=== PATIENT | female | born 1950 | race Two or more races ===

== ENCOUNTER 2019-12-25 15:58 | Inpatient (IN) | payer OTHER, MEDICARE, MEDICAID ==
[~2019-12-25] VITALS: Ht 152.4 cm; Wt 40.4 kg
--- NOTE | 2019-12-25 16:24 | NUR ---
BIB ra c/o altered from home, BS 86 in field. PT AWAKE EYES OPEN, NON VERBAL. RR EVEN & UNLABORED. NO ACUTE DISTRESS NOTED. PT SEEN & EVAL'D BY DR. LITTLE. PLACED ON CENTERLESS GRINDING MACHINE ADJUSTER, ST. WILL CONT TO MONITOR. PT TO CT VIA KATY.
[2019-12-25 16:26] LABS: BASOPHILS # (AUTO) 0.1 /CMM (0.0-0.2); BASOPHILS % (AUTO) 0.6 % (0.0-2.0); EOSINOPHILS % (AUTO) 0.3 % (0.0-6.0); HEMATOCRIT 48 % (33-45); HEMOGLOBIN 16.1 g/dL (11.5-14.8); LYMPHOCYTES # (AUTO) 1.8 /CMM (0.8-4.8); MEAN CORPUSCULAR HGB CONC 33 g/dl (31.0-36.0); MEAN CORPUSCULAR VOLUME 95 fL (82-100); MONOCYTES # (AUTO) 0.7 /CMM (0.1-1.30); MONOCYTES % (AUTO) 7.4 % (2.0-12.0); NEUTROPHILS # (AUTO) 6.6 /CMM (1.8-8.9); NEUTROPHILS % (AUTO) 71.7 % (43.0-81.0); PLATELET COUNT (AUTO) 260 /CMM (150-450); RED BLOOD CELL COUNT(AUTO) 5.09 MIL/uL (4.0-5.2); WHITE BLOOD COUNT (AUTO) 9.2 K/uL (4.3-11.0)
[2019-12-25] MEDS ORDERED: IV NS 0.9% 1,000 ML IV ONE (16:30)
[2019-12-25 16:39] LABS: CALCIUM, SERUM 10.1 mg/dL (8.5-10.1); CARBON DIOXIDE 26 mmol/L (21-32); CHLORIDE 102 mmol/L (98-107); CREATININE 1.2 mg/dL (0.6-1.3); GLUCOSE 102 mg/dL (74-106); POTASSIUM 4.5 mmol/L (3.5-5.1); SODIUM SERUM 139 mmol/L (136-145); UREA NITROGEN, BLOOD 23 mg/dL (7-18)
[2019-12-25 16:45] LABS: ACETAMINOPHEN < 2 ug/ml (10-30); ALANINE AMINOTRANSFERASE 33 U/L (12-78); ALBUMIN 4.4 g/dL (3.4-5.0); ALCOHOL, BLOOD < 3 mg/dL (0-0); ALKALINE PHOSPHATASE 78 U/L (46-116); ASPARTATE AMINOTRANSFERASE 33 U/L (15-37); BILIRUBIN,DIRECT 0.1 mg/dL (0.0-0.2); BILIRUBIN,TOTAL 0.6 mg/dL (0.2-1.0); SALICYLATE 2.8 mg/dL (2.8-20.0); TOTAL PROTEIN, SERUM 7.9 g/dL (6.4-8.2)
[2019-12-25 17:36] LABS: APPEARANCE,URINE Clear (CLEAR); BILIRUBIN,URINE SMALL (NEGATIVE); BLOOD, URINE Small Ery/uL (NEGATIVE); COLOR,URINE Yellow (YELLOW); KETONES,URINE 15 (NEGATIVE); LEUKOCYTE ESTERASE ,URINE Negative (NEGATIVE); NITRITE, URINE Negative (NEGATIVE); PH,URINE 5.5 (5.0-8.0); PROTEIN,URINE Trace mg/dl (NEGATIVE); UGLUCOSE Negative (NEGATIVE); UROBILINOGEN,URINE 0.2 EU/dL (0.2)
[2019-12-25 17:44] LABS: BACTERIA,URINE Few /HPF (None Seen); SQUAMOUS EPITHELIAL CELL,UR Few /HPF (None Seen); WBC,URINE 0-2 /HPF (0-3)
--- NOTE | 2019-12-25 18:22 | NUR ---
Patient is resting comfortably in bed with eyes closed. Easily aroused. VSS
[2019-12-25] MEDS ORDERED: MAGNESIUM HYDROXIDE 30 ML UDC PO PRN (20:00)
[2019-12-25] MEDS ORDERED: ONDANSETRON HCL/PF 4 MG/2 ML VIAL IVP PRN (20:00)
[2019-12-25] MEDS ORDERED: MAG HYDROX/AL HYDROX/SIMETH 30 ML UDC PO PRN (20:00)
[2019-12-25] MEDS ORDERED: ACETAMINOPHEN 325 MG TABLET PO PRN (20:00)
[2019-12-25] MEDS ORDERED: Z GUARD REMEDY 2 OZ OINT TP PRN (20:00)
[2019-12-25] MEDS ORDERED: Thiamine 100 MG in IV D5W 50 ML IV SCH (21:00)
[2019-12-25 21:30] VITALS: BP 134/86
--- NOTE | 2019-12-25 21:43 | NUR ---
REPORT GIVEN TO CRISSY RAMIREZ FOR KETURAH
--- NOTE | 2019-12-25 21:50 | NUR ---
VENKAT ([facility]): [phone]
[2019-12-25] MEDS: LORAZEPAM INJ 2 MG/ML VIAL IV PRN (22:24)
[2019-12-25] MEDS: IV NS 0.9% 1,000 ML IV PRN (22:28)
--- NOTE | 2019-12-25 22:30 | NUR ---
MACHINE FUR CLEANER NOTES 2209 [facility] ER staff. Admitted to Tele due to delirium and dehydration under the service of MARK Schaefer. Transferred to bed comfortably. Pt noted getting off the bed, anxious, unable to calm down. Admission routine done. Pt non-verbal, very poor historian. Initial skin assessment done, no skin issues identified at this time. On tele monitor with NSR noted. Initiated soft wrist restraint as ordered for pt's safety. PRN Ativan given as ordered. Kept on bed clean, dry and comfortable. On fall and aspiration precautions. Will continue to monitor accordingly.
[2019-12-25] MEDS ORDERED: Thiamine 100 MG/ML VIAL ONE (23:25)
[2019-12-26] MEDS: LORAZEPAM INJ 2 MG/ML VIAL IV PRN (03:15)
--- NOTE | 2019-12-26 06:32 | NUR ---
RN CLOSING NOTES Pt asleep on bed, on RA, no SOB/respiratory distress noted. Kept on bed on fall and aspiration precautions. Medicated for agitation/anxiety, noted effective. All nursing needs attended. Endorsed.
[2019-12-26 06:35] LABS: BASOPHILS % (AUTO) 0.4 % (0.0-2.0); HEMATOCRIT 42 % (33-45); HEMOGLOBIN 13.7 g/dL (11.5-14.8); LYMPHOCYTES # (AUTO) 1.7 /CMM (0.8-4.8); LYMPHOCYTES % (AUTO) 22.5 % (20.0-44.0); MEAN CORPUSCULAR HGB CONC 33 g/dl (31.0-36.0); MEAN CORPUSCULAR VOLUME 96 fL (82-100); MONOCYTES # (AUTO) 0.8 /CMM (0.1-1.30); MONOCYTES % (AUTO) 10.3 % (2.0-12.0); NEUTROPHILS % (AUTO) 65.8 % (43.0-81.0); PLATELET COUNT (AUTO) 182 /CMM (150-450); RED BLOOD CELL COUNT(AUTO) 4.36 MIL/uL (4.0-5.2); WHITE BLOOD COUNT (AUTO) 7.6 K/uL (4.3-11.0)
[2019-12-26 07:00] LABS: CALCIUM, SERUM 8.7 mg/dL (8.5-10.1); CREATININE 0.8 mg/dL (0.6-1.3); MAGNESIUM 2.2 mg/dL (1.8-2.4); PHOSPHORUS 3.4 mg/dL (2.5-4.9); POTASSIUM 3.6 mmol/L (3.5-5.1)
--- NOTE | 2019-12-26 07:40 | NUR ---
MS RN NOTES PATIENT RECEIVED IN BED SLEEPING, EASILY AWAKEN BY TOUCH. PATIENT HAS PERIODS OF CONFUSIONS. ON ROOM AIR, WITH NO SIGNS OF RESPIRATORY DISTRESS AT THIS TIME WITH EVEN NON-LABORED BREATHING, AND NO SOB NOTED. SKIN DRY AND WARM TO TOUCH. SITTER AT BEDSIDE, BRITNEY. IV ACCESS INTACT AND PATENT. SAFETY PRECAUTIONS IMPLEMENTED WITH BED LOCKED, BED IN THE LOWEST POSITION, BED ALARM ON, BILATERAL SIDE RAILS UP, AND CALL LIGHT WITHIN EASY REACH OF PATIENT. WILL CONTINUE TO MONITOR PATIENT.
[2019-12-26 08:00] VITALS: BP 101/64
[2019-12-26] MEDS ORDERED: PANTOPRAZOLE 40 MG VIAL IV SCH (09:00)
[2019-12-26] MEDS: IV NS 0.9% 1,000 ML IV PRN (11:08)
--- NOTE | 2019-12-26 13:55 | NUR ---
MS RN NOTES PSYCH CONSULT DONE BY DR. LEIVA AND ORDERED REMERON 7.5mg PO AT 2200. WILL CONTINUE TO MONITOR PATIENT.
--- NOTE | 2019-12-26 16:30 | NUR ---
MS RN NOTES NOTIFIED SONVENKAT [ ], REGARDING PATIENT IS TRANSFERRING TO [facility]. VERBAL CONSENT GIVEN VIA TELEPHONE, ANOTHER RN, GINGER CONFIRMED CONSENT FOR TRANSFER. WILL CONTINUE TO MONITOR PATIENT.
[2019-12-26] MEDS ORDERED: ENSURE ENLIVE 237 ML LIQUID (VANILLA) PO SCH (17:00)
--- NOTE | 2019-12-26 17:19 | NUR ---
MS RN NOTES PATIENT REFUSED KEFLEX 500 mg PO, INFORMED THE BENEFITS OF THE MEDICATION AND TRIED MULTIPLE TIMES. PATIENT STILL KEPT REFUSING MEDICATION, AFTER EDUCATION WAS IMPLEMENTED. WILL CONTINUE TO MONITOR PATIENT.
--- NOTE | 2019-12-26 17:30 | NUR ---
MS RN NOTES REPORT GIVEN TO SHALA FROM [facility]. UPPER CASER TIME FOR PATIENT IS SCHEDULED AT 1930. WILL CONTINUE TO MONITOR PATIENT AT THIS TIME.
[2019-12-26] MEDS ORDERED: CEPHALEXIN MONOHYDRATE 500 MG CAPSULE PO SCH (18:00)
--- NOTE | 2019-12-26 18:43 | NUR ---
MS RN NOTES PATIENT IN BED, WITH SITTER AT BEDSIDE. PATIENT REMAINS CALM AND ALERT AND ORIENTED X1. ON ROOM AIR WITH NO SIGNS OF RESPIRATORY DISTRESS AT THIS TIME, WITH EVEN NON-LABORED BREATHING, AND WITH NO SOB NOTED. PATIENT SKIN KEPT CLEAN AND DRY, IV ACCESS INTACT AND PATENT. INFUSING NORMAL SALINE AT 75ml/hr. MET ALL OF PATIENT'S NEEDS, AND PROVIDED COMFORT MEASURES TO PATIENT. SAFETY PRECAUTIONS IMPLEMENTED WITH BED LOCKED, BED IN THE LOWEST POSITION, BED ALARM ON, BILATERAL SIDE RAILS UP, AND CALL LIGHT WITHIN EASY REACH OF PATIENT. WILL ENDORSE PLAN OF CARE TO UPCOMING NURSE.
--- NOTE | 2019-12-26 19:15 | NUR ---
MS RN OPENING NOTES PATIENT SLEEPING IN BED, EASY TO AWAKEN. SITTER PRESENT AT THE BEDSIDE FOR PATIENT SAFETY. A/OX1. STABLE ON RA. NO S/S OF ACUTE RESPIRATORY DISTRESS; BREATHING IS EVEN AND UNLABORED. NO S/S OF PAIN NOTED. IV PRESENT ON LEFT HAND, SIZE 20, INTACT & PATENT WITH NS RUNNING AT 75 ML/HR. PATIENT TO BE TRANSFERRED TO [facility] FOR CONTINUATION OF CARE. PER DAY SHIFT RN, DISCHARGE INSTRUCTIONS COMPLETED AND REPORT GIVEN TO RYAN WOODWARD AT [place]; AWAITING TRANSPORTATION AT 1930. SAFETY MEASURES IN PLACE AND PATIENT'S NEEDS MET. BED LOCKED, ALARM ON, SIDE RAILS X2, CALL LIGHT WITHIN REACH. WILL CONTINUE TO MONITOR.
--- NOTE | 2019-12-26 19:46 | NUR ---
MS HAND TOOL FILER NOTES PATIENT TRANSFERRED TO [facility] FOR CONTINUATION OF CARE. TRANSPORTATION VIA [facility]. PER DAY SHIFT RN, DISCHARGE INSTRUCTIONS COMPLETED AND REPORT GIVEN TO RYAN WOODWARD AT [place]; PATIENT TO BE PLACED IN 4W ROOM 5634. DISCHARGE INSTRUCTIONS AND FACE SHEET HANDED TO TRANSPORTATION TEAM. ALL BELONGINGS WITH PATIENT. ID BAND REMOVED. IV ON LEFT HAND, SIZE 20, REMAINS IN PLACE FOR TRANSFER. VITAL SIGNS - BP: 135/80, HR: 77, RR: 18, SPO2: 98, TEMP: 98.5. SONVENKAT, CONTACTED AND MADE AWARE OF TRANSFER
[2019-12-26] MEDS ORDERED: MIRTAZAPINE 15 MG TABLET PO SCH (22:00)
== END 2019-12-26 19:45 | disposition short-term general hospital (02) | DRG 689 ==
LOC: ER 15:58 → TELE 21:37 → MED 12-26 07:44
PROVIDERS: ADMIT Nurse Practitioner Acute Care; ATTEND Nurse Practitioner Acute Care
DX: N39.0 Urinary tract infection, site not specified (principal); G93.41 Metabolic encephalopathy; R40.2212 Coma scale, best verbal response, none, at arrival to emergency department; R40.2342 Coma scale, best motor response, flexion withdrawal, at arrival to emergency department; E51.2 Wernicke's encephalopathy; E44.0 Moderate protein-calorie malnutrition; R64 Cachexia; Z68.1 Body mass index [BMI] 19.9 or less, adult; F10.288 Alcohol dependence with other alcohol-induced disorder; E86.0 Dehydration; E78.5 Hyperlipidemia, unspecified; I10 Essential (primary) hypertension; F32.9 Major depressive disorder, single episode, unspecified; F41.9 Anxiety disorder, unspecified; F03.90 Unspecified dementia, unspecified severity, without behavioral disturbance, psychotic disturbance, mood disturbance, and anxiety; M62.50 Muscle wasting and atrophy, not elsewhere classified, unspecified site; R40.2142 Coma scale, eyes open, spontaneous, at arrival to emergency department; R56.9 Unspecified convulsions
CPT/HCPCS: 36415; 70450-TC; 71045-TC; 80048-TC; 80061-TC; 80076-TC; 80305; 81000-TC; 82140-TC; 82533; 83605-TC; 83735-TC; 84100-TC; 84443-TC; 85025-TC; 86140-TC; 87040-TC; 95819-TC; 97116-TC; 97530-TC; C9113; G0378; G0480; J2060; J3411; J7030; J7060

== ENCOUNTER 2021-12-30 15:52 | Emergency (ER) | payer MEDICAID, MEDICARE, OTHER ==
[~2021-12-30] VITALS: Ht 152.4 cm; Wt 48.1 kg
--- NOTE | 2021-12-30 16:09 | NUR ---
TO ER BED 10, [id number] FRM HOME, FOUND IN THE BATHROOM WITH NOTED L HIP PAIN, CONNECTED TO MONITOR, AWAITING MD ORDERS
[2021-12-30] MEDS ORDERED: MORPHINE SULFATE INJ 4 MG/ML DISP.SYRIN ONE (16:13)
[2021-12-30] MEDS ORDERED: KETOROLAC TROMETHAMINE 15 MG/ML VIAL ONE (16:13)
--- NOTE | 2021-12-30 16:25 | NUR ---
jossie (half sister) [phone]
[2021-12-30] MEDS ORDERED: MORPHINE SULFATE INJ 2 MG/ML DISP.SYRIN IM ONE (16:30)
[2021-12-30] MEDS ORDERED: KETOROLAC TROMETHAMINE INJ 30 MG/ML VIAL IM ONE (16:30)
--- NOTE | 2021-12-30 17:02 | NUR ---
CALLED [facility] [phone] DR. PACK WILL CALL US BACK.
--- NOTE | 2021-12-30 17:03 | NUR ---
COVID SWAB DONE AND SENT TO LAB
[2021-12-30 17:22] LABS: BASOPHILS % (AUTO) 0.3 % (0.0-2.0); EOSINOPHILS % (AUTO) 0.4 % (0.0-6.0); HEMATOCRIT 40 % (33-45); HEMOGLOBIN 13.4 g/dL (11.5-14.8); LYMPHOCYTES # (AUTO) 1.8 K/uL (0.8-4.8); LYMPHOCYTES % (AUTO) 12.3 % (20.0-44.0); MEAN CORPUSCULAR HGB CONC 33 g/dl (31.0-36.0); MEAN CORPUSCULAR VOLUME 91 fL (82-100); MONOCYTES # (AUTO) 0.7 K/uL (0.1-1.30); MONOCYTES % (AUTO) 4.6 % (2.0-12.0); NEUTROPHILS # (AUTO) 12.3 K/uL (1.8-8.9); NEUTROPHILS % (AUTO) 82.4 % (43.0-81.0); PLATELET COUNT (AUTO) 263 K/uL (150-450); RED BLOOD CELL COUNT(AUTO) 4.41 MIL/uL (4.0-5.2); WHITE BLOOD COUNT (AUTO) 14.9 K/uL (4.3-11.0)
--- NOTE | 2021-12-30 17:28 | NUR ---
SISSY CALLED DR. PACK SPEAKING WITH DR. SMITH. PT GOING TO [facility].
[2021-12-30 17:38] LABS: CALCIUM, SERUM 9.3 mg/dL (8.5-10.1); CREATININE 1.5 mg/dL (0.6-1.3); POTASSIUM 3.8 mmol/L (3.5-5.1)
--- NOTE | 2021-12-30 20:37 | NUR ---
PASCALE GRIFFIN @7543 PT GOING TO ROOM 4126 AT [facility] BY DR. RODRIGUES REPORT NUMBER - [phone]
--- NOTE | 2021-12-30 21:07 | NUR ---
Report given to soto Barrios RN aware of ETA at 2114
[2021-12-30 21:08] VITALS: BP 120/61
--- NOTE | 2021-12-30 21:42 | NUR ---
PRN ALS at bedside. Paperwork given. pt left in stable condition.
== END 2021-12-30 21:45 | disposition short-term general hospital (02) ==
LOC: ER 16:07
DX: S72.002A Fracture of unspecified part of neck of left femur, initial encounter for closed fracture (principal); W18.30XA Fall on same level, unspecified, initial encounter; Y92.019 Unspecified place in single-family (private) house as the place of occurrence of the external cause; Z20.822 Contact with and (suspected) exposure to COVID-19; R94.31 Abnormal electrocardiogram [ECG] [EKG]; Z86.59 Personal history of other mental and behavioral disorders
CPT/HCPCS: 99291; 96374; 96375; 87426; 93005; 71045; 73503; 85025; 80048; 36415; 85730; J2270; J1885; C9803; 73502